=== PATIENT | female | born 1970 | race Caucasian/White ===

== ENCOUNTER 2022-07-25 17:12 | Emergency (ER) | payer OTHER, BC ==
[2022-07-25] MEDS ORDERED: Ketorolac Tromethamine 30 MG/ML VIAL ONE (20:00)
== END 2022-07-25 20:35 | disposition home or self-care (01) ==
LOC: ERS 17:12
DX: S20.319A Abrasion of unspecified front wall of thorax, initial encounter (principal); V49.40XA Driver injured in collision with unspecified motor vehicles in traffic accident, initial encounter; Y92.410 Unspecified street and highway as the place of occurrence of the external cause
CPT/HCPCS: 71046; 96372; J1885